=== PATIENT | female | born 1990 | race Caucasian/White ===

== ENCOUNTER 2017-08-08 15:53 | Emergency (ER) | payer MEDICAID, OTHER ==
[~2017-08-08] VITALS: Ht 162.6 cm; Wt 60.5 kg
[~2017-08-08 15:53] MED LIST: PERC5TAB12 PO; PREN0.01 PO
[2017-08-08 16:02] VITALS: BP 118/63; PULSE 101; RESP 18; TEMP 98.9; O2SAT 100
--- NOTE | 2017-08-08 17:42 | PD ---
HPI Chief Complaint: Related Problem Time Seen by Provider: 17:28 Travel History International Travel<30 days: No Contact w/Intl Traveler<30days: No Traveled to known affect area: No History of Present Illness HPI 27-year-old female , LMP 05/25/17, here for evaluation of pelvic cramping, nausea, vomiting, diarrhea, foul-smelling vaginal discharge. She denies fevers or chills. No dysuria. No history of abdominal surgeries. No vaginal bleeding. She has not yet received any care. [facility] Past Medical History ?: LMP: 05/25/2017 Menopausal: No Social History Alcohol Use: No Tobacco Use: No Substance Use: No Allergies-Medications (Allergen,Severity, Reaction): Coded Allergies: No Known Allergies (Verified Adverse Reaction, Unknown, 08/08/17) Reported Meds & Prescriptions Reported Meds & Active Scripts Active No Active Prescriptions or Reported Medications Review of Systems Except as stated in HPI: all other systems reviewed are Neg Physical Exam Narrative GENERAL: Well-developed, well-nourished, comfortable, no apparent distress. SKIN: Focused skin assessment warm/dry. HEAD: Atraumatic. Normocephalic. EYES: Pupils equal and round. No scleral icterus. No injection or drainage. ENT: Mucous membranes pink and moist. NECK: Trachea midline. No JVD. CARDIOVASCULAR: Regular rate and rhythm. RESPIRATORY: No accessory muscle use. Clear to auscultation. Breath sounds equal bilaterally. GASTROINTESTINAL: Abdomen soft, nondistended. Mild suprapubic tenderness without peritoneal signs. Normal bowel sounds. No hernias. [employer]: Exam performed in the presence of a female nurse. Normal external genitalia. Scant/whitish/physiologic/gur-wtyg-ewhwcnti vaginal discharge. Cervical osseous closed with normal-appearing cervix. No vaginal bleeding. MUSCULOSKELETAL: No obvious deformities. No clubbing. No cyanosis. No edema. NEUROLOGICAL: Awake and alert. No obvious cranial nerve deficits. Motor grossly within normal limits. Normal speech. PSYCHIATRIC: Appropriate mood and affect; insight and judgment normal. Data Data Last Documented VS Vital Signs Date Time Temp Pulse Resp B/P (MAP) Pulse Ox O2 Delivery O2 Flow Rate FiO2 08/08/17 19:14 83 16 96/62 (73) 100 08/08/17 16:02 98.9 Orders Orders Comprehensive Metabolic Panel (08/08/17 16:04) Complete Blood Count With Diff (08/08/17 16:04) Urinalysis - C+S If Indicated (08/08/17 16:04) Ed Urine Pregnancytest Poc (08/08/17 16:04) Beta Hcg (Quant/Titer) (08/08/17 16:04) Gc And Chlamydia Pcr (08/08/17 17:33) Wet Prep Profile (08/08/17 17:33) Metoclopramide Inj (Reglan Inj) (08/08/17 17:45) Urine Culture (08/08/17 16:58) Ceftriaxone Inj (Rocephin Inj) (08/08/17 18:30) Us Pelvis (Ques Pr/Ect)W Trans (08/08/17 ) Labs Laboratory Tests Test 08/08/17 16:58 08/08/17 17:04 08/08/17 18:10 08/08/17 18:40 Urine Color LIGHT-YELLOW Urine Turbidity CLEAR Urine pH 6.5 Urine Specific [place] 1.004 Urine Protein NEG mg/dL Urine Glucose (UA) NEG mg/dL Urine Ketones NEG mg/dL Urine Occult Blood SMALL Urine Nitrite NEG Urine Bilirubin NEG Urine Urobilinogen LESS THAN 2.0 MG/DL Urine Leukocyte Esterase MOD Urine RBC 2 /hpf Urine WBC 2 /hpf Urine Squamous Epithelial Cells 1 /hpf Urine Amorphous Sediment RARE Urine Bacteria MANY /hpf Microscopic Urinalysis Comment CULTURE INDICATED Blood Urea Nitrogen 5 MG/DL Creatinine 0.68 MG/DL Random Glucose 78 MG/DL Total Protein 7.8 GM/DL Albumin 3.8 GM/DL Calcium Level 8.4 MG/DL Alkaline Phosphatase 57 U/L Aspartate Amino Transf (AST/SGOT) 21 U/L Alanine Aminotransferase (ALT/SGPT) 18 U/L Total Bilirubin 0.3 MG/DL Sodium Level 135 MEQ/L Potassium Level 3.6 MEQ/L Chloride Level 105 MEQ/L Carbon Dioxide Level 22.2 MEQ/L Anion Gap 8 MEQ/L Estimat Glomerular Filtration Rate 103 ML/MIN Human Chorionic Gonadotropin, Quant 45485 MIU/ML White Blood Count 9.7 TH/MM3 Red Blood Count 4.43 MIL/MM3 Hemoglobin 13.8 GM/DL Hematocrit 39.6 % Mean Corpuscular Volume 89.3 FL Mean Corpuscular Hemoglobin 31.1 PG Mean Corpuscular Hemoglobin Concent 34.8 % Red Cell Distribution Width 12.6 % Platelet Count 192 TH/MM3 Mean Platelet Volume 7.4 FL Neutrophils (%) (Auto) 87.7 % Lymphocytes (%) (Auto) 6.0 % Monocytes (%) (Auto) 6.2 % Eosinophils (%) (Auto) 0.0 % Basophils (%) (Auto) 0.1 % Neutrophils # (Auto) 8.5 TH/MM3 Lymphocytes # (Auto) 0.6 TH/MM3 Monocytes # (Auto) 0.6 TH/MM3 Eosinophils # (Auto) 0.0 TH/MM3 Basophils # (Auto) 0.0 TH/MM3 CBC Comment DIFF FINAL Differential Comment Clue Cells (Wet Prep) NONE SEEN Vaginal Trichomonas (Wet Prep) NONE SEEN Vaginal Yeast (Wet Prep) NONE SEEN MDM Medical Decision Making Medical Screen Exam Complete: Yes Emergency Medical Condition: Yes Differential Diagnosis , ectopic , spontaneous /missed , ovarian cyst , ovarian torsion less likely, PID, UTI, cystitis Narrative Course Vital signs reviewed. CBC: WBC 9.7, hemoglobin 13.8, hematocrit 39.6, platelets 192, neutrophils 88%. CMP is unremarkable. Beta-hCG is 77,262. UA shows small occult blood, moderate leukocyte esterase, many bacteria, culture indicated. The patient was given 1 g of IV Rocephin. Wet prep is negative for yeast, negative for clue cells, negative for trichomonas. Pelvic ultrasound: CONCLUSION: 1. 6 week 5 day intrauterine by crown rump length. Viability undetermined. No free fluid or adnexal mass. Yolk sac present. Patient was made aware of all findings. She is resting comfortably. No peritoneal signs on abdominal exam. There is no vaginal bleeding. She was given 1 g of IV Rocephin for bacteriuria during and will be started on Keflex. Close follow-up recommended with repeat ultrasound in a week. I will give her the information to the [place] [facility] where she can make an appointment. Pelvic rest endorsed. She was advised on when to return to the emergency department. She verbalizes understanding and agreement with plan. Diagnosis Primary Impression: Early stage of Additional Impression: Bacteriuria during Referrals: [facility] 3 days Additional Instructions: Follow-up with an [employer] physician this week. Return to the emergency department for worsening symptoms or any other concerns. Scripts Doxylamine-Pyridoxine (Diclegis) 10-10 Mg Tab 1 TAB PO BID for Nausea, #15 Prov: Jamar Velez MD 08/08/17 Cephalexin (Keflex) 500 Mg Cap 500 MG PO Q12H for Infection for 7 Days, #14 CAP 0 Refills Prov: Jamar Velez MD 08/08/17 Disposition: 01 DISCHARGE HOME Condition: Stable Jamar Velez MD Aug 08, 2017 17:42
[2017-08-08] MEDS ORDERED: METOCLOPRAMIDE HCL 10 MG/2 ML VIAL IV PUSH ONE (17:45)
[2017-08-08 17:50] LABS: AMORPHOUS SEDIMENT, URINE RARE; BACTERIA, URINE MANY /hpf; BILIRUBIN, URINE NEG (NEG); BLOOD, URINE SMALL (NEG); GLUCOSE,URINE NEG (NEG); KETONE, URINE NEG (NEG); NITRITE,URINE NEG (NEG); PH, URINE 6.5 (5.0-8.5); SQUAMOUS EPITHELIAL CELL URINE 1 /hpf (0-5); URINE COLOR LIGHT-YELLOW (YELLW/STRAW); URINE LEUKOCYTE ESTERASE MOD (NEG)
[2017-08-08 18:05] LABS: ALBUMIN 3.8 GM/DL (3.4-5.0); AST (GOT) 21 U/L (15-37); BICARBONATE 22.2 MEQ/L (21.0-32.0); BLOOD UREA NITROGEN 5 MG/DL (7-18); CALCIUM 8.4 MG/DL (8.5-10.1); CHLORIDE 105 MEQ/L (98-107); CREATININE 0.68 MG/DL (0.50-1.00); GLOMERULAR FILTRATION RATE 103 ML/MIN (>89); GLUCOSE,RANDOM 78 MG/DL (74-106); SODIUM (NA) 135 MEQ/L (136-145)
[2017-08-08 18:09] LABS: ALKALINE PHOSPHATASE 57 U/L (45-117); ALT (GPT) 18 U/L (10-53); TOTAL BILIRUBIN ADULT 0.3 MG/DL (0.2-1.0); TOTAL PROTEIN 7.8 GM/DL (6.4-8.2)
[2017-08-08] MEDS ORDERED: cefTRIAXone INJ 1,000 MG in SODIUM CHLORIDE 0.9% INJ 100 ML IV ONE (18:30)
[2017-08-08 18:37] LABS: AUTOMATED NEUTROPHIL # 8.5 TH/MM3 (1.8-7.7); BASOPHIL % 0.1 % (0.0-2.0); HEMATOCRIT 39.6 % (35.0-46.0); HEMOGLOBIN 13.8 GM/DL (11.6-15.3); LYMPHOCYTE # 0.6 TH/MM3 (1.0-4.8); MEAN CELL VOLUME 89.3 FL (80.0-100.0); MEAN CORPUSCULAR HEMOGLOBIN 31.1 PG (27.0-34.0); MEAN CORPUSCULAR HGB CONC 34.8 % (32.0-36.0); MEAN PLATELET VOLUME 7.4 FL (7.0-11.0); MONO % 6.2 % (0.0-8.0); MONOCYTE # 0.6 TH/MM3 (0-0.9); NEUT % 87.7 % (16.0-70.0); PLATELET COUNT 192 TH/MM3 (150-450); RED BLOOD COUNT 4.43 MIL/MM3 (4.00-5.30); RED CELL DISTRIBUTION WIDTH 12.6 % (11.6-17.2); WHITE BLOOD COUNT 9.7 TH/MM3 (4.0-11.0)
[2017-08-08 19:14] VITALS: BP 96/62; PULSE 83; RESP 16; O2SAT 100
--- NOTE | 2017-08-08 19:49 | RADRPT ---
EXAM DATE/TIME: 08/08/2017 18:36 [place] COMPARISON: No previous studies available for comparison. INDICATIONS : Pelvic cramping. LAB(S): Beta-hC MEDICAL HISTORY : . SURGICAL HISTORY : None. ENCOUNTER: Initial ACUITY: 2 days PAIN SCORE: 3/10 LOCATION: Bilateral pelvis MEASUREMENTS: UTERUS: 9.1 x 6.5 x 5.1 cm ENDOMETRIAL STRIPE: 10 mm RIGHT OVARY: 3.6 x 2.8 x 2.4 cm LEFT OVARY: 2.6 x 2.4 x 1.7 cm FREE FLUID: No CROWN RUMP LENGTH: 0.81 cm = 6 WKS 5 DAYS FHR: BPM FINDINGS: There is a 6 week 5 day intrauterine by crown rump length. heart rate not visualized. No adnexal mass or free fluid. Ovaries unremarkable. CONCLUSION: 1. 6 week 5 day intrauterine by crown rump length. Viability undetermined. No free fluid or adnexal mass. Yolk sac present. Rodrigo Vila MD on August 08, 2017 at 19:44 Board Certified Radiologist. This report was verified electronically.
[2017-08-08] MEDS ORDERED: DOXY10TA PO (20:05)
[2017-08-08] MEDS ORDERED: CEPH-460 PO (20:05)
== END 2017-08-08 20:19 | disposition home or self-care (01) ==
LOC: NEPD 15:53
DX: O26.891 Other specified pregnancy related conditions, first trimester (principal); R82.71 Bacteriuria; Z3A.01 Less than 8 weeks gestation of pregnancy
CPT/HCPCS: 76700; 76817; 80053; 81001; 84702; 84703; 85025; 87086; 87210; 87491; 87591; 96365; 96375; 99284; J0696; J2765